=== PATIENT | male | born 1935 | race Two or more races ===

== ENCOUNTER 2019-03-03 14:35 | Emergency (ER) | payer MEDICARE, OTHER ==
[~2019-03-03] VITALS: Ht 180.3 cm; Wt 72.6 kg
[2019-03-03 16:28] LABS: Basophils # (auto) 0 uL; Basophils % (auto) 0.4 % (0.0-2.0); Eosinophils # (auto) 0.1 uL; Eosinophils % (auto) 1.7 % (0.0-7.0); Hematocrit 39.2 % (41.0-53.0); Hemoglobin 13.3 g/dL (13.5-17.5); Lymphocytes # (auto) 1.1 uL; Mean Corpuscular Hemoglobin 31.4 pg (28.0-32.0); Mean Corpuscular Hgb Conc. 33.8 g/dL (32.0-36.0); Mean Corpuscular Volume 92.9 fL (80.0-100.0); Monocytes % (auto) 11.9 % (0.0-12.0); Neutrophils # (auto) 6.4 uL; Platelet Count (auto) 288 10^3/uL (140-450); Red Blood Cells 4.22 10^6/uL (4.5-5.90); Red Cell Distribution Width 15.4 % (11.8-14.3); White Blood Cell 8.8 10^3/uL (4.4-10.8)
[2019-03-03 16:29] LABS: Albumin 3.4 g/dL (3.4-5.0); Anion Gap 8 (5-15); Blood Urea Nitrogen 15 mg/dL (7-18); Calcium 8.7 mg/dL (8.5-10.1); Carbon Dioxide 29 mmol/L (21-32); Chloride 97 mmol/L (98-107); Glucose 109 mg/dL (74-106); Potassium 3.6 mmol/L (3.5-5.1); Sodium 134 mmol/L (136-145)
[2019-03-03 16:35] LABS: Alanine Aminotransferase 24 U/L (16-61); Alkaline Phosphatase 104 U/L (45-117); Aspartate Aminotransferase 43 U/L (15-37); Bilirubin, Total 0.4 mg/dL (0.2-1.0); GFR African American 120 mL/min; GFR Non-African American 100 mL/min; Total Protein 6.8 g/dL (6.4-8.2)
[2019-03-03 18:00] VITALS: BP 146/70
== END 2019-03-03 18:56 | disposition home or self-care (01) ==
LOC: EDBD 14:35 → ER 14:40
DX: S40.011A Contusion of right shoulder, initial encounter (principal); G30.9 Alzheimer's disease, unspecified; F02.80 Dementia in other diseases classified elsewhere, unspecified severity, without behavioral disturbance, psychotic disturbance, mood disturbance, and anxiety; I10 Essential (primary) hypertension; W18.39XA Other fall on same level, initial encounter; Y93.89 Activity, other specified; Y92.89 Other specified places as the place of occurrence of the external cause; Y99.8 Other external cause status
CPT/HCPCS: 36415; 70450; 73030; 80053; 84484; 85025; 93005

== ENCOUNTER 2020-02-06 13:55 | Emergency (ER) | payer MEDICARE, OTHER ==
[~2020-02-06] VITALS: Ht 175.3 cm; Wt 72.6 kg
[2020-02-06] MEDS ORDERED: cloNIDine HCL 0.1 MG TAB PO ONE (14:30)
[2020-02-06 15:01] LABS: Eosinophils # (auto) 0.2 10 ^3/uL (0-0.8); Lymphocytes # (auto) 1.3 10 ^3/uL (0.4-5.4); Monocytes # (auto) 0.6 10 ^3/uL (0-1.3); Monocytes % (auto) 10.5 % (0.0-12.0); Neutrophils # (auto) 3.3 10 ^3/uL (1.6-8.6); White Blood Cell 5.4 10^3/uL (4.4-10.8)
[2020-02-06 15:04] LABS: Basophils # (auto) 0 10 ^3/uL (0-0.2); Basophils % (auto) 0.9 % (0.0-2.0); Eosinophils % (auto) 3.9 % (0.0-7.0); Hematocrit 34.7 % (41.0-53.0); Hemoglobin 11.9 g/dL (13.5-17.5); Lymphocytes % (auto) 23.9 % (10.0-50.0); Mean Corpuscular Hgb Conc. 34.4 g/dL (32.0-36.0); Mean Corpuscular Volume 101.6 fL (80.0-100.0); Neutrophils % (auto) 60.8 % (37.0-80.0); Nucleated Red Blood Cells % 0.1 %; Platelet Count (auto) 192 10^3/uL (140-450); Red Blood Cells 3.41 10^6/uL (4.5-5.90); Red Cell Distribution Width 13.8 % (11.8-14.3)
[2020-02-06 15:16] LABS: Albumin 3.5 g/dL (3.4-5.0); Anion Gap 3 (5-15); Blood Urea Nitrogen 19 mg/dL (7-18); Calcium 8.6 mg/dL (8.5-10.1); Carbon Dioxide 30 mmol/L (21-32); Chloride 107 mmol/L (98-107); Glucose 93 mg/dL (74-106); Sodium 140 mmol/L (136-145)
[2020-02-06 15:18] LABS: Alanine Aminotransferase 22 U/L (16-61); Aspartate Aminotransferase 29 U/L (15-37); GFR African American 97 mL/min; GFR Non-African American 80 mL/min
[2020-02-06 15:22] LABS: Alkaline Phosphatase 77 U/L (45-117); Bilirubin, Total 0.3 mg/dL (0.2-1.0); Total Protein 6.4 g/dL (6.4-8.2)
[2020-02-06] MEDS ORDERED: LIDOCAINE 2% (LOCAL ANESTH.) PF 5ml SDV ONE (17:02)
[2020-02-06] MEDS ORDERED: TETANUS-DIPTH-ACEL PERTUSSIS 0.5ML SYR Tdap IM ONE (17:45)
[2020-02-06 19:02] VITALS: BP 168/72
== END 2020-02-07 04:20 | disposition home or self-care (01) ==
LOC: EDBD 13:55 → ER 13:55
DX: S01.111A Laceration without foreign body of right eyelid and periocular area, initial encounter (principal); S09.90XA Unspecified injury of head, initial encounter; I10 Essential (primary) hypertension; W07.XXXA Fall from chair, initial encounter; Y93.89 Activity, other specified; Y92.89 Other specified places as the place of occurrence of the external cause; Y99.8 Other external cause status
CPT/HCPCS: 12013; 36415; 70450; 70486; 71045; 80053; 84484; 85025; 90471; 90715; 99285; J2001

== ENCOUNTER 2020-03-11 17:54 | Inpatient (IN) | payer MEDICARE, OTHER ==
[~2020-03-11] VITALS: Ht 182.9 cm; Wt 68.2 kg
[2020-03-11 19:14] LABS: Basophils # (auto) 0 10 ^3/uL (0-0.2); Eosinophils # (auto) 0 10 ^3/uL (0-0.8); Lymphocytes # (auto) 0.4 10 ^3/uL (0.4-5.4); Monocytes # (auto) 0.6 10 ^3/uL (0-1.3); Neutrophils # (auto) 6.8 10 ^3/uL (1.6-8.6); White Blood Cell 7.8 10^3/uL (4.4-10.8)
[2020-03-11] MEDS ORDERED: SODIUM CHLORIDE 0.9% 500 ML IV ONE (19:15)
[2020-03-11 19:17] LABS: Basophils % (auto) 0.3 % (0.0-2.0); Eosinophils % (auto) 0.3 % (0.0-7.0); Hematocrit 33.7 % (41.0-53.0); Hemoglobin 11.6 g/dL (13.5-17.5); Lymphocytes % (auto) 4.9 % (10.0-50.0); Mean Corpuscular Hgb Conc. 34.5 g/dL (32.0-36.0); Mean Corpuscular Volume 101.4 fL (80.0-100.0); Monocytes % (auto) 7.9 % (0.0-12.0); Neutrophils % (auto) 86.6 % (37.0-80.0); Platelet Count (auto) 182 10^3/uL (140-450); Red Blood Cells 3.32 10^6/uL (4.5-5.90); Red Cell Distribution Width 13.6 % (11.8-14.3)
[2020-03-11 19:26] LABS: Albumin 3.2 g/dL (3.4-5.0); Potassium 3.6 mmol/L (3.5-5.1)
[2020-03-11 19:31] LABS: BUN/Creatinine Ratio 31.6; Bilirubin, Total 0.8 mg/dL (0.2-1.0); Total Protein 6.2 g/dL (6.4-8.2)
[2020-03-12] MEDS ORDERED: cefTRIAXone 1GM/50ML D5W 50 ML IV ONE
[2020-03-12 00:54] LABS: Urine Bacteria MOD /hpf (None Seen); Urine Blood 3+ /uL (Negative); Urine Mucus FEW (None Seen); Urine WBC 182 /hpf (0 - 3); Urine WBC Clumps PRESENT /hpf (None Seen)
[2020-03-12] MEDS ORDERED: ACETAMINOPHEN 325 MG TAB PO PRN (02:30)
[2020-03-12] MEDS ORDERED: ONDANSETRON HCL 4 MG/2 ML VIAL IV PRN (02:30)
[2020-03-12] MEDS: FAMOTIDINE 20 MG TAB PO SCH ×2 (10:19→22:06)
[2020-03-12] MEDS: LISINOPRIL 10 MG TAB PO SCH (10:19)
[2020-03-12] MEDS: ENOXAPARIN SOD 40 MG/0.4 ML SYRINGE SC SCH (10:19)
[2020-03-12] MEDS: SOD CHL 0.9%/ KCL 20MEQ 1,000 ML IV SCH (12:32)
[2020-03-12] MEDS: metroNIDAZOLE 500MG/100ML 100 ML IV SCH ×2 (14:24→22:06)
[2020-03-12] MEDS: TEMAZEPAM 15 MG CAP PO PRN ×2 (18:49→18:50)
[2020-03-12] MEDS: cefTRIAXone 1GM/50ML D5W 50 ML IV SCH (21:10)
[2020-03-12 22:00] VITALS: BP_SYST 117; BP_SYST 149; BP_DIAS 59; BP_DIAS 74
[2020-03-13] MEDS: SOD CHL 0.9%/ KCL 20MEQ 1,000 ML IV SCH ×2 (00:50→15:18)
[2020-03-13] MEDS ORDERED: GALA24CA PO (01:51)
[2020-03-13] MEDS ORDERED: MELA3TAB27 PO (01:51)
[2020-03-13] MEDS ORDERED: TAFL0.00 OP (01:51)
[2020-03-13] MEDS ORDERED: TAMS0.4C36 PO (01:51)
[2020-03-13] MEDS ORDERED: QUET100T46 PO (01:51)
[2020-03-13] MEDS ORDERED: BUPR100T14 PO (01:51)
[2020-03-13] MEDS ORDERED: DEXTLIQ PO (01:51)
[2020-03-13] MEDS ORDERED: ACET-1156 PO (01:51)
[2020-03-13] MEDS ORDERED: LISI-648 PO (01:51)
[2020-03-13] MEDS ORDERED: LORA0.5T20 PO (01:51)
[2020-03-13] MEDS ORDERED: PSYL100P8 OR (01:51)
[2020-03-13] MEDS ORDERED: TRAZ100T3 PO (01:51)
[2020-03-13] MEDS ORDERED: CARB0.5D8 EACHEYE (01:51)
[2020-03-13] MEDS ORDERED: DOCU-94 PO (01:51)
[2020-03-13 04:43] VITALS: BP 144/72
[2020-03-13] MEDS: metroNIDAZOLE 500MG/100ML 100 ML IV SCH ×3 (05:42→22:14)
[2020-03-13 08:10] LABS: Calcium 8.6 mg/dL (8.5-10.1); Potassium 3.7 mmol/L (3.5-5.1)
[2020-03-13 08:12] LABS: BUN/Creatinine Ratio 36.1
[2020-03-13 09:00] VITALS: BP 153/58
[2020-03-13] MEDS: GALANTAMINE 24 MG PO SCH (10:00)
[2020-03-13 13:00] VITALS: BP 151/49
[2020-03-13] MEDS: FAMOTIDINE 20 MG TAB PO SCH ×2 (13:02→22:14)
[2020-03-13] MEDS: ENOXAPARIN SOD 40 MG/0.4 ML SYRINGE SC SCH (13:03)
[2020-03-13] MEDS: QUEtiapine FUMARATE 25 MG TAB PO SCH ×2 (13:03→22:15)
[2020-03-13] MEDS: LISINOPRIL 10 MG TAB PO SCH (15:18)
[2020-03-13 17:00] VITALS: BP 132/56
[2020-03-13] MEDS: TAMSULOSIN HYDROCHLORIDE 0.4 MG CAP PO SCH (17:30)
[2020-03-13] MEDS: buPROPion HCL 75 MG TAB PO SCH (19:02)
[2020-03-13] MEDS: cefTRIAXone 1GM/50ML D5W 50 ML IV SCH (20:44)
[2020-03-13 21:34] VITALS: BP 150/77
[2020-03-13] MEDS: traZODone HCL 50 MG TAB PO SCH (22:14)
[2020-03-14] MEDS: TEMAZEPAM 15 MG CAP PO PRN (01:44)
[2020-03-14] MEDS: SOD CHL 0.9%/ KCL 20MEQ 1,000 ML IV SCH ×3 (03:30→12:17)
[2020-03-14 05:00] VITALS: BP 157/69
[2020-03-14] MEDS: metroNIDAZOLE 500MG/100ML 100 ML IV SCH ×3 (05:34→22:28)
[2020-03-14] MEDS: buPROPion HCL 75 MG TAB PO SCH ×2 (07:37→17:50)
[2020-03-14 09:00] VITALS: BP 144/70
[2020-03-14] MEDS: GALANTAMINE 24 MG PO SCH (10:00)
[2020-03-14] MEDS: FAMOTIDINE 20 MG TAB PO SCH ×2 (10:08→22:28)
[2020-03-14] MEDS: ENOXAPARIN SOD 40 MG/0.4 ML SYRINGE SC SCH (10:08)
[2020-03-14] MEDS: LISINOPRIL 10 MG TAB PO SCH (10:09)
[2020-03-14] MEDS: QUEtiapine FUMARATE 25 MG TAB PO SCH ×2 (10:09→22:28)
[2020-03-14 13:00] VITALS: BP 152/72
[2020-03-14] MEDS ORDERED: hydrALAZINE HCL 20 MG/ML VL IV PRN (13:30)
[2020-03-14] MEDS ORDERED: LISINOPRIL 10 MG TAB PO ONE (13:30)
[2020-03-14] MEDS ORDERED: HALOPERIDOL LACTATE 5 MG/ML INJ VIAL IM PRN (14:00)
[2020-03-14 17:00] VITALS: BP 149/83
[2020-03-14] MEDS: TAMSULOSIN HYDROCHLORIDE 0.4 MG CAP PO SCH (17:50)
[2020-03-14] MEDS: cefTRIAXone 1GM/50ML D5W 50 ML IV SCH (20:51)
[2020-03-14 21:47] VITALS: BP 146/71
[2020-03-14] MEDS: traZODone HCL 50 MG TAB PO SCH (22:28)
[2020-03-15 04:50] VITALS: BP 144/68
[2020-03-15] MEDS: metroNIDAZOLE 500MG/100ML 100 ML IV SCH ×3 (05:37→21:21)
[2020-03-15] MEDS: SOD CHL 0.9%/ KCL 20MEQ 1,000 ML IV SCH ×3 (06:10→22:51)
[2020-03-15 08:58] VITALS: BP 128/67
[2020-03-15] MEDS: GALANTAMINE 24 MG PO SCH (10:00)
[2020-03-15] MEDS: LISINOPRIL 10 MG TAB PO SCH (10:23)
[2020-03-15] MEDS: FAMOTIDINE 20 MG TAB PO SCH ×2 (10:24→21:22)
[2020-03-15] MEDS: QUEtiapine FUMARATE 25 MG TAB PO SCH ×2 (10:24→21:21)
[2020-03-15] MEDS: ENOXAPARIN SOD 40 MG/0.4 ML SYRINGE SC SCH (10:24)
[2020-03-15] MEDS: buPROPion HCL 75 MG TAB PO SCH ×2 (10:24→17:48)
[2020-03-15 13:00] VITALS: BP 147/74
[2020-03-15] MEDS ORDERED: LACTULOSE 20Gm/30ML SOLN PO ONE (15:45)
[2020-03-15 17:00] VITALS: BP 158/74
[2020-03-15] MEDS: TAMSULOSIN HYDROCHLORIDE 0.4 MG CAP PO SCH (17:47)
[2020-03-15 19:25] VITALS: BP 117/59
[2020-03-15] MEDS: cefTRIAXone 1GM/50ML D5W 50 ML IV SCH (20:11)
[2020-03-15] MEDS: LACTULOSE 20Gm/30ML SOLN PO SCH (21:22)
[2020-03-15] MEDS: traZODone HCL 50 MG TAB PO SCH (21:22)
[2020-03-16 04:58] VITALS: BP 147/82
[2020-03-16] MEDS: metroNIDAZOLE 500MG/100ML 100 ML IV SCH (05:54)
[2020-03-16] MEDS: buPROPion HCL 75 MG TAB PO SCH ×2 (06:02→18:34)
[2020-03-16 08:54] VITALS: BP 152/86
[2020-03-16] MEDS ORDERED: AMPI500C8 PO (09:41)
[2020-03-16] MEDS: FAMOTIDINE 20 MG TAB PO SCH ×2 (10:00→21:25)
[2020-03-16] MEDS: LISINOPRIL 10 MG TAB PO SCH (10:00)
[2020-03-16] MEDS: QUEtiapine FUMARATE 25 MG TAB PO SCH ×2 (10:00→21:25)
[2020-03-16] MEDS: LACTULOSE 20Gm/30ML SOLN PO SCH ×2 (10:00→21:24)
[2020-03-16] MEDS: ENOXAPARIN SOD 40 MG/0.4 ML SYRINGE SC SCH (10:00)
[2020-03-16] MEDS: GALANTAMINE 24 MG PO SCH (10:00)
[2020-03-16 13:00] VITALS: BP 131/58
[2020-03-16 17:00] VITALS: BP 155/88
[2020-03-16] MEDS: TAMSULOSIN HYDROCHLORIDE 0.4 MG CAP PO SCH (18:33)
[2020-03-16 19:26] VITALS: BP 145/68
[2020-03-16] MEDS: cefTRIAXone 1GM/50ML D5W 50 ML IV SCH (20:27)
[2020-03-16] MEDS: traZODone HCL 50 MG TAB PO SCH (21:24)
[2020-03-16 22:00] VITALS: BP 145/68
== END 2020-03-16 23:00 | disposition hospice, home (50) | DRG 872 ==
LOC: ER 17:54 → EDBD 17:54 → OVERFLOW 17:55 → WEST WING 03-12 20:18
PROVIDERS: ADMIT Nurse Practitioner; ATTEND Internal Medicine
DX: A41.51 Sepsis due to Escherichia coli [E. coli] (principal); N30.00 Acute cystitis without hematuria; E44.1 Mild protein-calorie malnutrition; R62.7 Adult failure to thrive; K57.90 Diverticulosis of intestine, part unspecified, without perforation or abscess without bleeding; I25.10 Atherosclerotic heart disease of native coronary artery without angina pectoris; G30.9 Alzheimer's disease, unspecified; Z20.828 Contact with and (suspected) exposure to other viral communicable diseases; K56.41 Fecal impaction; F02.80 Dementia in other diseases classified elsewhere, unspecified severity, without behavioral disturbance, psychotic disturbance, mood disturbance, and anxiety; Z88.2 Allergy status to sulfonamides; I10 Essential (primary) hypertension; N40.0 Benign prostatic hyperplasia without lower urinary tract symptoms; Z68.20 Body mass index [BMI] 20.0-20.9, adult; Z88.8 Allergy status to other drugs, medicaments and biological substances; Z88.1 Allergy status to other antibiotic agents; Z66 Do not resuscitate
CPT/HCPCS: 36415; 71045; 74176; 80048; 80053; 81001; 83605; 83880; 84484; 85025; 87040; 87077; 87081; 87086; 87088; 87186; 87426; 87493; 92610; 93005; 93971; 96361; 96365; 96372; 97163; G0378; J0696; J3490